=== PATIENT | female | born 1985 | race Caucasian/White ===

== ENCOUNTER 2023-04-28 00:03 | Emergency (ER) | payer OTHER, SELFPAY ==
[2023-04-28] VITALS (14 sets, daily range): BP systolic 84–144; BP diastolic 65–89; PULSE 63–80; RESP 15–29; TEMP 36.4; O2SAT 100; BMI 29.5
--- NOTE | 2023-04-28 00:13 | ED_ITS ---
HPI - Syncope General Chief Complaint: Syncope Stated Complaint: SYNCOPE Time Seen by Provider: 04/28/23 00:10 Source: patient Mode of arrival: walk-in Limitations: no limitations History of Present Illness HPI narrative: sitting and polishing her daughter's nail. Began to feel tingly in her hands. Olivia flushed. Went to the Bathroom and felt nauseated and light headed. Sat on the commode and leaned against the wall and passed out. Out for a short time before daughter woke her up. Denies headache, or chest pain. Still feels a little flushed in her face and her arms feel like they are weak but she can use them normally. Denies past history of syncope MD complaint: Reports loss of consciousness Related Data Home Medications Medication Instructions Recorded Confirmed duloxetine 30 mg capsule,delayed 30 mg PO DAILY 04/28/23 04/28/23 release hydrocodone 5 mg-acetaminophen 325 1 tab PO Q6H PRN pain 04/28/23 04/28/23 mg tablet levothyroxine 150 mcg tablet 150 mcg PO DAILY 04/28/23 04/28/23 liothyronine 5 mcg tablet 5 mcg PO DAILY 04/28/23 04/28/23 Allergies Allergy/AdvReac Type Severity Reaction Status Date / Time No Known Drug Allergies Allergy Verified 04/28/23 00:13 Review of Systems ROS Status of ROS 10 or more systems reviewed and unremarkable except as noted in history and below PFSH PFS Social History Smoking status: Never smoker Exam Constitutional Vital Signs - 24 hr 04/28/23 00:07 04/28/23 00:33 04/28/23 00:33 Temperature 97.6 F Pulse Rate Pulse Rate [Monitor] 72 Pulse Rate [orthostatic lying] 79 Pulse Rate [orthostatic sitting] 63 Pulse Rate [orthostatic standing] 67 Respiratory Rate 18 Blood Pressure Blood Pressure [Left Arm] 144/89 H Blood Pressure [orthostatic lying Right Arm] 121/78 H Blood Pressure [orthostatic sitting Right Arm] 132/84 H Blood Pressure [orthostatic standing Right Arm] 131/86 H Pulse Oximetry 100 Oxygen Delivery Method Room Air 04/28/23 00:11 04/28/23 00:17 04/28/23 00:28 Temperature Pulse Rate 65 67 79 Pulse Rate [Monitor] Pulse Rate [orthostatic lying] Pulse Rate [orthostatic sitting] Pulse Rate [orthostatic standing] Respiratory Rate 19 20 17 Blood Pressure 144/89 H 130/89 H 121/78 H Blood Pressure [Left Arm] Blood Pressure [orthostatic lying Right Arm] Blood Pressure [orthostatic sitting Right Arm] Blood Pressure [orthostatic standing Right Arm] Pulse Oximetry 100 Oxygen Delivery Method 04/28/23 00:29 04/28/23 00:30 04/28/23 00:30 Temperature Pulse Rate 63 67 80 Pulse Rate [Monitor] Pulse Rate [orthostatic lying] Pulse Rate [orthostatic sitting] Pulse Rate [orthostatic standing] Respiratory Rate 15 19 20 Blood Pressure 132/84 H 131/86 H 131/86 H Blood Pressure [Left Arm] Blood Pressure [orthostatic lying Right Arm] Blood Pressure [orthostatic sitting Right Arm] Blood Pressure [orthostatic standing Right Arm] Pulse Oximetry Oxygen Delivery Method 04/28/23 01:00 04/28/23 01:30 04/28/23 02:00 Temperature Pulse Rate 68 68 73 Pulse Rate [Monitor] Pulse Rate [orthostatic lying] Pulse Rate [orthostatic sitting] Pulse Rate [orthostatic standing] Respiratory Rate Blood Pressure 117/85 H 107/69 112/74 Blood Pressure [Left Arm] Blood Pressure [orthostatic lying Right Arm] Blood Pressure [orthostatic sitting Right Arm] Blood Pressure [orthostatic standing Right Arm] Pulse Oximetry Oxygen Delivery Method 04/28/23 02:30 04/28/23 03:00 04/28/23 03:00 Temperature Pulse Rate Pulse Rate [Monitor] Pulse Rate [orthostatic lying] Pulse Rate [orthostatic sitting] Pulse Rate [orthostatic standing] Respiratory Rate 29 H Blood Pressure 94/66 84/65 L 84/65 L Blood Pressure [Left Arm] Blood Pressure [orthostatic lying Right Arm] Blood Pressure [orthostatic sitting Right Arm] Blood Pressure [orthostatic standing Right Arm] Pulse Oximetry Oxygen Delivery Method Common normals: no apparent distress, average body habitus, oriented x3, no limitations, healthy appearing and alert [facility] Common normals: normocephalic and head/scalp atraumatic Eye Common normals: PERRL, EOMs intact bilaterally and conjunctivae normal Respiratory Common normals: normal respiratory effort, no retractions and no use of accessory muscles Cardio Common normals: no JVD, regular rate, regular rhythm, S1 normal heart sound and S2 normal heart sound GI Common normals: Normal to inspection, nondistended, normoactive bowel sounds present Extremity Common normals: normal to inspection, full ROM, normal capillary refill and no joint enlargement Neuro Common normals: oriented x3, CN's II-XII intact bilaterally, moves all extremities and no focal motor deficits Psych Appearance: grossly normal Course Vital Signs Vital signs: Vital Signs Temperature 97.6 F 04/28/23 00:07 Pulse Rate 72 04/28/23 00:07 Respiratory Rate 18 04/28/23 00:07 Blood Pressure 144/89 H 04/28/23 00:07 Pulse Oximetry 100 04/28/23 00:07 Oxygen Delivery Method Room Air 04/28/23 00:07 Temperature 97.6 F 04/28/23 00:07 Pulse Rate 73 04/28/23 02:00 Respiratory Rate 29 H 04/28/23 03:00 Blood Pressure 84/65 L 04/28/23 03:00 Pulse Oximetry 100 04/28/23 00:11 Oxygen Delivery Method Room Air 04/28/23 00:07 MDM - Syncope MDM Narrative Medical decision making narrative: patient presents after episode of syncope. No known cardiac history. preceding symptoms including feeling flushed, arms tingling and nausea. Workup in the department neg including non detectable serial troponins and neg d-dimer. Normal EKG. Patient advised of working diagnosis of vasovagal syncope and advised to follow up with her family doctor for recheck Lab Data Labs: Lab Results 04/28/23 04/28/23 Range/Units 00:15 03:15 WBC 8.1 (4.0-11.0) 10^3/uL RBC 4.05 L (4.20-5.40) 10^6/uL Hgb 12.8 (12.0-16.0) g/dL Hct 38.0 (36.0-48.0) % MCV 93.8 (81.0-99.0) fL MCH 31.6 (26.7-34.0) pg MCHC 33.7 (29.9-35.2) g/dL RDW 13.5 (11.0-15.0) % Plt Count 310 (150-450) 10^3/uL MPV 8.5 L (9.5-13.5) fL Neut % (Auto) 47.4 (43.0-75.0) % Lymph % (Auto) 43.5 (20.5-60.0) % [place] % (Auto) 4.6 (1.7-12.0) % Eos % (Auto) 3.3 (0.9-7.0) % Baso % (Auto) 0.7 (0.2-2.0) % Neut # (Auto) 3.8 (1.4-6.5) 10^3/uL Lymph # (Auto) 3.5 (1.2-3.8) 10^3/uL [place] # (Auto) 0.4 (0.3-0.8) 10^3/uL Eos # (Auto) 0.3 (0.0-0.7) 10^3/uL Baso # (Auto) 0.1 (0.0-0.1) 10^3/uL Abs Immat Gran (auto) 0.04 H (0.00-0.03) 10^3/uL Imm/Tot Granulo (auto) 0.5 (0.0-0.5) % D-Dimer <0.19 (<=0.59) mg/L FEU Sodium 134 L (136-145) mmol/L Potassium 3.1 L (3.5-5.1) mmol/L Chloride 101 (98-107) mmol/L Carbon Dioxide 20.1 L (21.0-32.0) mmol/L Anion Gap 16.0 BUN 11.0 (7.0-18.0) mg/dL Creatinine 0.88 (0.55-1.02) mg/dL Est GFR ( Amer) >60 (>=60) Est GFR (Non-Af Amer) >60 (>=60) BUN/Creatinine Ratio 12.5 Glucose 88 (74-106) mg/dL Calcium 8.3 L (8.5-10.1) mg/dL Troponin I High Sens <4.0 L <4.0 L (4.0-51.3) pg/mL Discharge Plan Discharge Chief Complaint: Syncope Clinical Impression: Vasovagal syncope Prescriptions / Home Meds: No Action hydrocodone-acetaminophen 5-325 mg tablet 1 tab PO Q6H PRN (Reason: pain) liothyronine 5 mcg tablet 5 mcg PO DAILY levothyroxine 150 mcg tablet 150 mcg PO DAILY duloxetine 30 mg capsule,delayed release(DR/EC) 30 mg PO DAILY Instructions: Syncope (ED) Stand Alone Forms: Portal Instructions Referrals: GEOVANY HUNTER [Primary Care Provider] - 1 week Follow Up Appointments: follow up with your family doctor in next 2-3 days for recheck
--- NOTE | 2023-04-28 00:17 | ECG_ITS ---
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
--- NOTE | 2023-04-28 00:17 | XR_ITS ---
The [address] [address] Patient Name: VENKAT CROWE MRN: [id number] date: 1985 Sex: F Assigned Patient Location: ED.MAIN Current Patient Location: ER Accession/Order Number: [id number] Exam Date: 04/28/2023 00:30 Report Date: 04/28/2023 00:54 At the request of: JEFFRY MATA Procedure: XR chest 1V EXAM: XR chest 1V 04/28/2023 12:30 AM EDT OH001 CLINICAL STATEMENT: syncope COMPARISON: 09/30/2022. TECHNIQUE: Single AP radiograph of the chest is submitted. FINDINGS: There is no acute airspace disease. The cardiac silhouette is normal. The costophrenic recesses are sharp. No pneumothorax. The bony elements are unremarkable. IMPRESSION: No acute cardiopulmonary process. Electronically authenticated by: VIOLA GAY Date: 04/28/2023 00:54
[2023-04-28 00:35] LABS: Basophils Absolute Auto 0.1 10^3/uL (0.0-0.1); Basophils Percent Auto 0.7 % (0.2-2.0); Eosinophils Absolute Auto 0.3 10^3/uL (0.0-0.7); Eosinophils Percent Auto 3.3 % (0.9-7.0); Hemoglobin 12.8 g/dL (12.0-16.0); Immature Granulocytes Abs Auto 0.04 10^3/uL (0.00-0.03); Immature Granulocytes Pct Auto 0.5 % (0.0-0.5); Lymphocytes Absolute Auto 3.5 10^3/uL (1.2-3.8); Lymphocytes Percent Auto 43.5 % (20.5-60.0); Mean Corpuscular HGB Conc 33.7 g/dL (29.9-35.2); Mean Corpuscular Hemoglobin 31.6 pg (26.7-34.0); Mean Corpuscular Volume 93.8 fL (81.0-99.0); Mean Platelet Volume 8.5 fL (9.5-13.5); Monocytes Absolute Auto 0.4 10^3/uL (0.3-0.8); Monocytes Percent Auto 4.6 % (1.7-12.0); Neutrophils Absolute Auto 3.8 10^3/uL (1.4-6.5); Neutrophils Percent Auto 47.4 % (43.0-75.0); Platelet Count 310 10^3/uL (150-450); Red Blood Count 4.05 10^6/uL (4.20-5.40); Red Cell Distribution Width 13.5 % (11.0-15.0); White Blood Count 8.1 10^3/uL (4.0-11.0)
[2023-04-28 00:47] LABS: D Dimer <0.19 mg/L FEU (<=0.59)
[2023-04-28 00:51] LABS: BUN Creatinine Ratio 12.5; Calcium 8.3 mg/dL (8.5-10.1); Carbon Dioxide 20.1 mmol/L (21.0-32.0); Chloride 101 mmol/L (98-107); Estimated GFR (African America >60 (>=60); Estimated GFR (Non-African Ame >60 (>=60); Glucose 88 mg/dL (74-106); Potassium 3.1 mmol/L (3.5-5.1); Sodium 134 mmol/L (136-145); Troponin I High Sensitivity <4.0 pg/mL (4.0-51.3)
[2023-04-28 03:37] LABS: Troponin I High Sensitivity <4.0 pg/mL (4.0-51.3)
== END 2023-04-28 04:12 | disposition home or self-care (01) ==
PROVIDERS: Emergency Provider Internal Medicine; PCP Internal Medicine
DX: R55 Syncope and collapse (principal); Z79.890 Hormone replacement therapy; Z79.899 Other long term (current) drug therapy
CPT/HCPCS: 36415; 71045; 80048; 84484; 85025; 85378; 93005; 99285

== ENCOUNTER 2023-09-05 09:34 | Outpatient (OUT) | payer OTHER, SELFPAY ==
[2023-09-05 10:28] LABS: Erythrocyte Sedimentation Rate 10 mm/hr (<=20)
[2023-09-05 11:24] LABS: C Reactive Protein <0.2 mg/dL (<=1.0); Creatine Kinase 143 U/L (26-192)
[2023-09-08 11:08] LABS: Aldolase 4.5 U/L (3.3-10.3); Sjogren's Anti-SS-A <0.2 AI (0.0-0.9); Sjogren's Anti-SS-B <0.2 AI (0.0-0.9)
== END 2023-09-05 09:35 | disposition home or self-care (01) ==
PROVIDERS: PCP Internal Medicine
DX: R41.3 Other amnesia (principal); M31.6 Other giant cell arteritis; F03.90 Unspecified dementia, unspecified severity, without behavioral disturbance, psychotic disturbance, mood disturbance, and anxiety; G72.9 Myopathy, unspecified; E06.3 Autoimmune thyroiditis; M79.7 Fibromyalgia; G62.9 Polyneuropathy, unspecified; R20.0 Anesthesia of skin
CPT/HCPCS: 36415; 82085; 82550; 85652; 86140; 86235

== ENCOUNTER 2023-09-11 20:38 | Emergency (ER) | payer OTHER, SELFPAY ==
[2023-09-11] VITALS (22 sets, daily range): BP systolic 121–148; BP diastolic 77–111; PULSE 85–120; RESP 9–34; TEMP 36.6; O2SAT 93–100; BMI 30.3
--- NOTE | 2023-09-11 20:48 | ECG_ITS ---
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
--- NOTE | 2023-09-11 20:49 | ED.ANXIETY1 ---
HPI - Anxiety General Chief Complaint: Anxiety Stated Complaint: other Time Seen by Provider: 09/11/23 20:43 Source: patient and family Mode of arrival: walk-in Limitations: no limitations History of Present Illness HPI narrative: patient states she was sitting and developed acute onset of tingling of her nose and then it spread to her face and through her body. She feels like her hand and legs are numb. She can't stop her hands from shaking. Feels like her body is numb. Denies past history of this . She started Naltrexone today as the only new medication Related Data Home Medications Medication Instructions Recorded Confirmed levothyroxine 150 mcg tablet 150 mcg PO DAILY 04/28/23 09/11/23 liothyronine 5 mcg tablet 5 mcg PO DAILY 04/28/23 09/11/23 albuterol sulfate 90 mcg/actuation inhalation 09/11/23 aerosol inhaler biotin 10,000 mcg capsule mcg PO 09/11/23 Allergies Allergy/AdvReac Type Severity Reaction Status Date / Time No Known Drug Allergies Allergy Verified 09/11/23 20:47 Review of Systems ROS Status of ROS 10 or more systems reviewed and unremarkable except as noted in history and below [facility] Social History Smoking status: Never smoker Exam Constitutional Vital Signs, click to edit/add: Last Vital Signs Temp 98 F 09/11/23 20:41 Pulse 82 09/12/23 00:20 Resp 19 09/12/23 00:20 BP 125/75 09/12/23 00:08 Pulse Ox 96 09/12/23 00:20 O2 Del Method Room Air 09/11/23 20:41 General appearance: anxious HENMO Common normals: normocephalic and head/scalp atraumatic Respiratory Common normals: normal respiratory effort, no retractions, no use of accessory muscles and clear to auscultation bilaterally Cardio Common normals: regular rhythm, S1 normal heart sound and S2 normal heart sound Rate: tachycardic GI Common normals: Normal to inspection, nondistended, normoactive bowel sounds present, soft to palpation and non-tender Extremity Common normals: normal to inspection and full ROM Neuro Common normals: oriented x3 and moves all extremities Psych Mood and affect: anxious Course Vital Signs Vital signs: Vital Signs Temperature 98 F 09/11/23 20:41 Pulse Rate 120 H 09/11/23 20:41 Respiratory Rate 24 09/11/23 20:41 Blood Pressure 142/98 H 09/11/23 20:41 Pulse Oximetry 99 09/11/23 20:41 Oxygen Delivery Method Room Air 09/11/23 20:41 Temperature 98 F 09/11/23 20:41 Pulse Rate 82 09/12/23 00:20 Respiratory Rate 19 09/12/23 00:20 Blood Pressure 125/75 09/12/23 00:08 Pulse Oximetry 96 09/12/23 00:20 Oxygen Delivery Method Room Air 09/11/23 20:41 MDM - Anxiety MDM Narrative Medical decision making narrative: patient presents with acute onset of anxiety attack. numbness started at her nose and then spread in gen. distribution. heaviness of her hands and feet. Shaking uncontrollably of her arms. She has a history of hypothyroidism(Paulette). States she was started on Naltrexone today and only took one dose. She does not have a past history of anxiety. Able to treat her symptoms and allow her to rest. Discharged home as a likely adverse reaction to Naltrexone and advised to d/c this medication for now Lab Data Labs: Lab Results 09/11/23 Range/Units 21:06 WBC 10.3 (4.0-11.0) 10^3/uL RBC 4.14 L (4.20-5.40) 10^6/uL Hgb 13.0 (12.0-16.0) g/dL Hct 39.4 (36.0-48.0) % MCV 95.2 (81.0-99.0) fL MCH 31.4 (26.7-34.0) pg MCHC 33.0 (29.9-35.2) g/dL RDW 13.0 (11.0-15.0) % Plt Count 316 (150-450) 10^3/uL MPV 8.8 L (9.5-13.5) fL Neut % (Auto) 55.5 (43.0-75.0) % Lymph % (Auto) 33.7 (20.5-60.0) % [place] % (Auto) 4.7 (1.7-12.0) % Eos % (Auto) 4.9 (0.9-7.0) % Baso % (Auto) 0.6 (0.2-2.0) % Neut # (Auto) 5.7 (1.4-6.5) 10^3/uL Lymph # (Auto) 3.5 (1.2-3.8) 10^3/uL [place] # (Auto) 0.5 (0.3-0.8) 10^3/uL Eos # (Auto) 0.5 (0.0-0.7) 10^3/uL Baso # (Auto) 0.1 (0.0-0.1) 10^3/uL Abs Immat Gran (auto) 0.06 H (0.00-0.03) 10^3/uL Imm/Tot Granulo (auto) 0.6 H (0.0-0.5) % Sodium 134 L (136-145) mmol/L Potassium 3.2 L (3.5-5.1) mmol/L Chloride 101 (98-107) mmol/L Carbon Dioxide 22.4 (21.0-32.0) mmol/L Anion Gap 13.8 BUN 12.0 (7.0-18.0) mg/dL Creatinine 0.91 (0.55-1.02) mg/dL Est GFR ( Amer) >60 (>=60) Est GFR (Non-Af Amer) >60 (>=60) BUN/Creatinine Ratio 13.2 Glucose 106 (74-106) mg/dL Lactate 2.0 (0.4-2.0) mmol/L Calcium 8.9 (8.5-10.1) mg/dL TSH 1.166 (0.358-3.740) uIU/mL Free T4 1.12 (0.76-1.46) ng/dL Discharge Plan Discharge Chief Complaint: Anxiety Clinical Impression: Adverse drug effect, Acute anxiety Patient Disposition: Home, Self-Care Prescriptions / Home Meds: No Action liothyronine 5 mcg tablet 5 mcg PO DAILY levothyroxine 150 mcg tablet 150 mcg PO DAILY biotin 10,000 mcg capsule PO albuterol sulfate 90 mcg/actuation HFA aerosol inhaler INHALATION Instructions: Adverse Drug Reaction (ED), Anxiety (ED) Additional Instructions: discontinue Naltrexone. Follow up with your doctor in the next couple of days Stand Alone Forms: Portal Instructions Referrals: GEOVANY HUNTER [Primary Care Provider] - 1 week Discharge Date/Time: 09/12/23 00:35
[2023-09-11] MEDS: DIAZEPAM 5 MG/ML - 2 ML INJ SYRINGE IV (20:59)
[2023-09-11] MEDS: 0.9 % SODIUM CHLORIDE 1,000 ML 999 ML IV (21:06)
--- NOTE | 2023-09-11 21:11 | PC.NURSE ---
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 patient has uncontrollable shaking on arrival that hasn't stopped since it started. patient states she hasn't ever had this before. patient states she does have hx of anxiety but that this isn't anxiety. patient did just start a new medication today, low dose naltrexone. patient states she took it this morning.
[2023-09-11 21:17] LABS: Basophils Absolute Auto 0.1 10^3/uL (0.0-0.1); Basophils Percent Auto 0.6 % (0.2-2.0); Eosinophils Absolute Auto 0.5 10^3/uL (0.0-0.7); Eosinophils Percent Auto 4.9 % (0.9-7.0); Hematocrit 39.4 % (36.0-48.0); Immature Granulocytes Abs Auto 0.06 10^3/uL (0.00-0.03); Immature Granulocytes Pct Auto 0.6 % (0.0-0.5); Lymphocytes Absolute Auto 3.5 10^3/uL (1.2-3.8); Lymphocytes Percent Auto 33.7 % (20.5-60.0); Mean Corpuscular Hemoglobin 31.4 pg (26.7-34.0); Mean Corpuscular Volume 95.2 fL (81.0-99.0); Mean Platelet Volume 8.8 fL (9.5-13.5); Monocytes Absolute Auto 0.5 10^3/uL (0.3-0.8); Monocytes Percent Auto 4.7 % (1.7-12.0); Neutrophils Absolute Auto 5.7 10^3/uL (1.4-6.5); Neutrophils Percent Auto 55.5 % (43.0-75.0); Platelet Count 316 10^3/uL (150-450); Red Blood Count 4.14 10^6/uL (4.20-5.40); White Blood Count 10.3 10^3/uL (4.0-11.0)
[2023-09-11] MEDS: MAGNESIUM SULFATE IN WATER 2 GM/50 ML PREMIX IV (21:35)
[2023-09-11] MEDS: DIPHENHYDRAMINE HCL 50 MG/ML (1ML) VIAL IV (21:35)
[2023-09-11 21:45] LABS: Free T4 1.12 ng/dL (0.76-1.46)
[2023-09-11 21:46] LABS: Anion Gap 13.8; BUN Creatinine Ratio 13.2; Calcium 8.9 mg/dL (8.5-10.1); Carbon Dioxide 22.4 mmol/L (21.0-32.0); Chloride 101 mmol/L (98-107); Estimated GFR (African America >60 (>=60); Estimated GFR (Non-African Ame >60 (>=60); Glucose 106 mg/dL (74-106); Potassium 3.2 mmol/L (3.5-5.1); Sodium 134 mmol/L (136-145); Thyroid Stimulating Hormone 1.166 uIU/mL (0.358-3.740)
[2023-09-12] VITALS: PULSE 101; RESP 21; O2SAT 96
[2023-09-12 00:08] VITALS: BP 125/75; PULSE 88; RESP 19; O2SAT 98
[2023-09-12 00:10] VITALS: PULSE 87; RESP 20; O2SAT 98
[2023-09-12 00:20] VITALS: PULSE 82; RESP 19; O2SAT 96
[2023-09-12] MEDS: DIPHENHYDRAMINE HCL 25 MG CAPSULE 50 MG PO (00:24)
[2023-09-12] MEDS: DIAZEPAM 5 MG TABLET PO (00:24)
== END 2023-09-12 00:35 | disposition home or self-care (01) ==
PROVIDERS: Emergency Provider Internal Medicine; PCP Internal Medicine
DX: F41.9 Anxiety disorder, unspecified (principal); T50.7X5A Adverse effect of analeptics and opioid receptor antagonists, initial encounter; E06.3 Autoimmune thyroiditis; Z79.899 Other long term (current) drug therapy; Z79.890 Hormone replacement therapy
CPT/HCPCS: 36415; 80048; 83605; 84439; 84443; 85025; 93005; 96365; 96375; 99285